=== PATIENT | female | born 2000 | race Caucasian/White ===

== ENCOUNTER 2022-05-06 20:29 | Emergency (ER) | payer OTHER ==
[~2022-05-06] VITALS: Ht 165.1 cm; Wt 70.5 kg
[2022-05-06 20:32] VITALS: TEMP 97.8
[2022-05-06] MEDS ORDERED: EPIPEN 2-PAK1 MG/ML IM (21:28)
[2022-05-06 21:38] VITALS: BP 135/48; PULSE 86
== END 2022-05-06 21:39 | disposition home or self-care (01) ==
LOC: COL.ER 20:29
DX: L50.9 Urticaria, unspecified (principal); Z28.310 Unvaccinated for COVID-19
CPT/HCPCS: J1200; J7030